=== PATIENT | female | born 1960 | race Caucasian/White ===

== ENCOUNTER 2017-07-15 16:31 | Emergency (ER) | payer OTHER ==
[~2017-07-15] VITALS: Ht 172.7 cm; Wt 86.0 kg
[2017-07-15 16:48] VITALS: BP 143/84
[2017-07-15] MEDS ORDERED: KETOROLAC 30 MG/1 ML ONE ×2 (17:08→18:31)
[2017-07-15] MEDS ORDERED: KETOROLAC 30 MG/1 ML IM ONE (17:30)
[2017-07-15] MEDS ORDERED: OXYcodone/APAP 5/325MG TABLET PO ONE (18:30)
[2017-07-15] MEDS ORDERED: OXYcodone/APAP 5/325MG TABLET ONE (18:31)
[2017-07-15] MEDS ORDERED: LIDOCAINE-MPF 1%, 5ML INFIL ONE (20:00)
[2017-07-15] MEDS ORDERED: BUPIVACAINE/PF-EPI 0.25% 1:200K SQ ONE (20:00)
== END 2017-07-15 20:57 | disposition home or self-care (01) ==
LOC: ED 20:51
DX: S42.225A 2-part nondisplaced fracture of surgical neck of left humerus, initial encounter for closed fracture (principal); W01.0XXA Fall on same level from slipping, tripping and stumbling without subsequent striking against object, initial encounter; Y93.89 Activity, other specified; Y92.488 Other paved roadways as the place of occurrence of the external cause; Y99.8 Other external cause status
CPT/HCPCS: 73030; 73200; 96372; 99284; J1885